=== PATIENT | female | born 1990 | race Caucasian/White ===

== ENCOUNTER 2016-06-17 18:50 | Emergency (ER) | payer BC ==
[~2016-06-17] VITALS: Ht 165.1 cm; Wt 63.1 kg
[~2016-06-17 18:50] MED LIST: NOHOMEMEDS; PRENATAL TABLE1 EAC3 PO; ZOFRAN ODT4 MG PO
[2016-06-17] MEDS ORDERED: MOTRIN600 MG PO (20:14)
[2016-06-17] MEDS ORDERED: NORCO 5/3251 TABLET PO (20:14)
[2016-06-17 21:33] VITALS: BP 129/76
== END 2016-06-17 21:34 | disposition left against medical advice (07) ==
LOC: EME 18:50
PROC: 2W2FX4Z Dressing of Left Hand using Bandage (ICD-10-PCS; principal; 2016-06-17)
DX: T23.202A Burn of second degree of left hand, unspecified site, initial encounter (principal); X00.8XXA Other exposure to uncontrolled fire in building or structure, initial encounter
CPT/HCPCS: 99281; 99284